=== PATIENT | female | born 1990 | race Caucasian/White ===

== ENCOUNTER 2019-06-25 03:49 | Inpatient (IN) ==
[2019-06-25] MEDS ORDERED: OXYTOCIN 30 UNITS/500 ML BAG IV PRN ×3 (07:04→19:57)
[2019-06-25] MEDS: LACTATED RINGER'S 1,000 ML IV PRN ×3 (07:19→16:21)
[2019-06-25 07:22] LABS: Hematocrit (blood only) 37.9 % (37-47); Hemoglobin 12.6 g/dL (12.0-16.0); Mean Corpuscular Hemoglobin 29.5 pg (25-34); Mean Corpuscular Volume 88.8 fL (80-100); Mean Platelet Volume 8.6 fL (7.4-10.4); Platelet Count 273 K/uL (130-400); RDW Coefficient of Variation 12.9 % (11.5-14.5); RDW Standard Deviation 41.2 fL (36.4-46.3); Red Blood Count 4.27 M/uL (4.2-5.4); White Blood Count 11.98 K/uL (4.8-10.8)
[2019-06-25] MEDS ORDERED: fentaNYL citrate 100 MCG/2 ML VIAL ONE (07:26)
[2019-06-25] MEDS ORDERED: ePHEDrine sulfate 50 MG/ML AMP ONE (07:26)
[2019-06-25] MEDS ORDERED: fentaNYL 2MCG/ML ROPIV 1.25MG/ML 100 ML BAG EPI ONE (07:27)
[2019-06-25] MEDS ORDERED: BUPIVACAINE 0.25% 30 ML VIAL ONE (07:27)
--- NOTE | 2019-06-25 07:37 | History & Physical Report ---
Date of Service June 25, 2019 Assessment & Plan (1) Normal labor: IUP in active labor patient requesting epidural analgesia anticipate vaginal . History of Present Illness Primary Care Provider: Herminia Rosenberg Patient is a 28 yo white female EDC 06/24/19 who presents at 40 weeks in active labor. (-)SPROM GBS (+) complicated by La's thyroiditis. Family history complicated by nephew with hypoplastic left heart syndrome. Allergies Allergy/AdvReac Type Severity Reaction Status Date / Time Penicillins Allergy Verified 06/18/19 10:52 Home Medications Home Medications Medication Instructions Recorded Confirmed Type breast pump #1 ea 06/12/19 06/25/19 Rx PNV cmb#95-ferrous fumarate-FA 1 tab PO DAILY 06/25/19 06/25/19 History [] famotidine 06/25/19 History levothyroxine 150 mcg PO DAILY 06/25/19 06/25/19 History Patient History Medical History (Updated 06/25/19 @ 07:36 by Lea Blankenship MD, FACOG) History of varicella vaccination Surgical History (Updated 01/26/19 @ 15:21 by Silvia Anne) S/P wisdom tooth extraction Family History (Updated 01/26/19 @ 15:24 by Silvia Anne) Grandmother (Paternal) Colorectal cancer Hypertension Grandfather (Paternal) Hypertension Sister FH: malignant neoplasm of thyroid Mother Thyroid disease Dyslipidemia Family/Other Hypoplastic left heart syndrome nephew Social History (Updated 01/26/19 @ 15:25 by Silvia Anne) Preferred Language: Colombian Communication Ability: Effective Beliefs That Will Affect Care: None marital status: Current Living Situation: Spouse Other Information That Helps Us Care for You: No Feels Safe at Home: Yes Safety Concerns: Feels Safe At This Time Smoking Status: Never smoker Hx Alcohol Use: No Hx Substance Use: No Review of Systems All systems reviewed & are unremarkable except as noted in HPI & below Physical Exam Constitutional: WD/WN, vitals as above Respiratory: normal respiratory effort, lungs clear to auscultation Cardiovascular: RRR, no murmur, no edema Gastrointestinal (Abdomen): normal bowel sounds, soft, nontender, no hepatosplenomegaly Psychiatric: A+Ox3, euthymic affect Genitourinary: OB Exam Abdomen: + regular contractions Manual OB Exam: + cervical dilation 5 cm, + cervical effacement 90% and + station -1 OB Exam Monitor Tracing: + external FHT monitor used, + external uterine monitor used and + category I Results & Data Vital Signs (Past 12 Hours) Vital Signs Temp Pulse Resp BP 06/25/19 07:01 53 L 115/74 06/25/19 04:10 97.5 F L 70 18 122/74 06/25/19 04:06 97.5 F L 70 18 122/74
[2019-06-25 07:41] LABS: Mean Corpuscular Hgb Conc 33.2 g/dL (32-36)
--- NOTE | 2019-06-25 08:37 | Anesthesiology Consultation ---
Date of Service June 25, 2019 Assessment & Plan (1) Encounter for pre-operative examination: Chart Review Chart Review: Patient NOT seen in Pre Admission Testing and Acceptable Risk for Labor Epidural Consults Requested none ASA ASA2 Proposed Anesthesia Anesthesia Type: Labor Epidural Risk / Benefits Reviewed With: PT / POA / Parent / Guardian, Accepts Plan and Informed Consent Obtained History Height/Weight Height: 5 ft 4 in Weight: 79.832 kg Allergies Allergy/AdvReac Type Severity Reaction Status Date / Time Penicillins Allergy Verified 06/18/19 10:52 Medications Home Medications Medication Instructions Recorded Confirmed Last Taken breast pump #1 ea 06/12/19 06/25/19 Unknown PNV cmb#95-ferrous fumarate-FA 1 tab PO DAILY 06/25/19 06/25/19 06/24/19 [] famotidine 06/25/19 06/24/19 levothyroxine 150 mcg PO DAILY 06/25/19 06/25/19 06/24/19 Active Medications Generic Name Dose Route Start Last Admin Trade Name Freq PRN Reason Stop Dose Admin Lactated Ringer's 1,000 mls @ 125 mls/hr 06/25/19 07:04 06/25/19 08:28 Lr IV 06/27/19 07:03 Infused .Q8H PRN Infusion L&D Protocol Protocol NPO Date Last Intake of Fluids: 06/25/19 Time Last Intake of Fluids: 06:00 Date Last Intake of Solids: 06/24/19 Time Last Intake of Solids: 21:00 Past Medical History Medical History History of varicella vaccination Exercise / Class Metabolic Activity II 4-5 Yardwork/Stairs/Walk up hill Past Family History Family History Grandmother (Paternal) Colorectal cancer Hypertension Grandfather (Paternal) Hypertension Sister FH: malignant neoplasm of thyroid Mother Thyroid disease Dyslipidemia Family/Other Hypoplastic left heart syndrome nephew Past Surgical History Surgical History S/P wisdom tooth extraction Past Anesthesia History No Hx of Anesthesia Complications and No Family Hx of Anesthesia Complications History of PONV No Hx of PONV and No Hx of Motion Sickness Social History Smoking Status: Never smoker Hx Alcohol Use: No Hx Substance Use: No Physical Exam Vital Signs Last Vital Signs Temp 36.5 C 06/25/19 07:05 Pulse 67 06/25/19 08:32 Resp 20 06/25/19 07:05 BP 113/55 L 06/25/19 08:32 Pulse Ox 98 06/25/19 08:29 ENMT Mouth: no dentition abnormality Thyromental Distance: > or= 3.5 Finger Breadths Mallampati Class: II Neck normal visual inspection Respiratory normal respiratory effort Auscultation: lungs clear to auscultation bilaterally Cardiovascular Rate/Rhythm: regular rate and regular rhythm Psychiatric Orientation: alert Testing Laboratory Results 06/25/19 07:12
[2019-06-25] MEDS ORDERED: NALBUPHINE HCL INJ 10 MG/ML AMP IV PRN (08:39)
[2019-06-25] MEDS ORDERED: ONDANSETRON INJ 2 MG/ML 2 ML VIAL IV PRN (08:39)
[2019-06-25] MEDS ORDERED: ePHEDrine sulfate 50 MG/ML AMP IV PRN (08:39)
[2019-06-25] MEDS ORDERED: NALOXONE HCL 1 MG in SODIUM CHLORIDE 0.9% 1000ML 1,000 ML IV PRN (08:39)
[2019-06-25] MEDS ORDERED: fentaNYL 2MCG/ML ROPIV 1.25MG/ML 100 ML BAG EPI PRN (08:39)
[2019-06-25] MEDS ORDERED: DiphenhydrAMINE HCL 50 MG/ML VIAL IV PRN (08:39)
[2019-06-25] MEDS ORDERED: NALOXONE HCL 0.4 MG/1 ML VIAL/CARP IV PRN (08:39)
[2019-06-25] MEDS ORDERED: CEFAZOLIN 1000MG 1,000 MG/7.5 ML SYR IV PRN (08:59)
[2019-06-25] MEDS ORDERED: CEFAZOLIN 2000MG 2,000 MG/15 ML SYR IV STA (08:59)
--- NOTE | 2019-06-25 09:41 | Labor Progress Brief Note ---
Date of Service June 25, 2019 Subjective Comfortable with epidural Assessment & Plan (1) Normal labor: Progressing well, epidural working. SROM now; hoping to get two doses abx for GBS and first Ancef just hung. Physical Exam Genitourinary: Manual OB Exam: + cervical dilation 6 cm, + cervical effacement 90%, + station -1 and + amniotic fluid (SROM occurred during exam, clear fluid noted) clear OB Exam Monitor Tracing: + category I Results & Data Vital Signs (Past 12 Hours) Vital Signs Temp Pulse Resp BP Pulse Ox 06/25/19 09:39 60 96/54 L 06/25/19 09:34 81 99 06/25/19 09:29 60 100 06/25/19 09:24 63 97 06/25/19 09:23 61 95/55 L 06/25/19 09:19 77 99 06/25/19 09:14 54 L 97 06/25/19 09:09 56 L 97 06/25/19 09:08 62 109/57 L 06/25/19 09:04 61 98 06/25/19 08:59 53 L 98 06/25/19 08:54 57 L 98 06/25/19 08:53 55 L 108/58 L 06/25/19 08:49 57 L 100 06/25/19 08:44 64 100 06/25/19 08:39 74 98 06/25/19 08:37 60 114/61 06/25/19 08:34 64 99 06/25/19 08:32 67 113/55 L 06/25/19 08:30 74 104/60 06/25/19 08:29 74 98 06/25/19 08:28 67 111/61 06/25/19 08:26 84 114/64 06/25/19 08:24 68 111/58 L 100 06/25/19 08:22 61 118/71 06/25/19 08:19 64 100 06/25/19 08:14 72 100 06/25/19 08:09 90 100 06/25/19 07:05 97.7 F 20 06/25/19 07:01 53 L 115/74 06/25/19 04:10 97.5 F L 70 18 122/74 06/25/19 04:06 97.5 F L 70 18 122/74
--- NOTE | 2019-06-25 14:36 | Labor Progress Brief Note ---
Date of Service June 25, 2019 Subjective Comfortable with epidural Assessment & Plan (1) Normal labor: No significant change, ctx Q3-4, will start pitocin. Second abx dose due around 5pm. Physical Exam Genitourinary: Manual OB Exam: + cervical dilation 6 cm, + cervical effacement 90%, + station -1 and + amniotic fluid (SROM occurred during exam, clear fluid noted) clear OB Exam Monitor Tracing: + category I Results & Data Vital Signs (Past 12 Hours) Vital Signs Temp Pulse Resp BP Pulse Ox 06/25/19 14:29 69 100 06/25/19 14:24 90 100 06/25/19 14:23 71 116/67 06/25/19 14:19 64 100 06/25/19 14:14 86 100 06/25/19 14:09 79 99 06/25/19 14:08 61 115/61 06/25/19 14:04 60 98 06/25/19 13:59 64 98 06/25/19 13:54 98.2 F 54 L 20 119/61 97 06/25/19 13:49 129 H 99 06/25/19 13:44 115 H 99 06/25/19 13:39 74 99 06/25/19 13:38 69 117/68 06/25/19 13:34 83 99 06/25/19 13:29 66 98 06/25/19 13:24 67 98 06/25/19 13:23 64 117/64 06/25/19 13:19 64 97 06/25/19 13:14 67 97 06/25/19 13:09 65 97 06/25/19 13:08 67 108/60 06/25/19 13:04 68 98 06/25/19 12:59 73 99 06/25/19 12:54 68 99 06/25/19 12:53 68 20 109/60 06/25/19 12:49 78 99 06/25/19 12:44 61 97 06/25/19 12:39 64 97 06/25/19 12:38 73 115/62 06/25/19 12:34 58 L 98 06/25/19 12:29 62 97 06/25/19 12:24 58 L 97 06/25/19 12:23 56 L 108/57 L 06/25/19 12:19 62 97 06/25/19 12:14 60 98 06/25/19 12:09 62 99 06/25/19 12:08 98.2 F 65 18 112/61 06/25/19 12:04 70 99 06/25/19 11:59 66 99 06/25/19 11:54 63 99 06/25/19 11:53 68 112/59 L 06/25/19 11:49 64 100 06/25/19 11:44 70 99 06/25/19 11:39 76 100 06/25/19 11:38 61 111/57 L 06/25/19 11:34 62 99 06/25/19 11:29 60 100 06/25/19 11:24 59 L 109/57 L 100 06/25/19 11:19 69 100 06/25/19 11:14 72 100 06/25/19 11:09 69 100 06/25/19 11:08 62 116/64 06/25/19 11:04 66 100 06/25/19 11:00 20 06/25/19 10:59 65 100 06/25/19 10:58 57 L 120/65 06/25/19 10:54 65 100 06/25/19 10:49 100 H 98 06/25/19 10:44 71 100 06/25/19 10:39 75 100 06/25/19 10:38 83 98/57 L 06/25/19 10:34 81 100 06/25/19 10:29 65 109/57 L 100 06/25/19 10:25 61 73/34 L 06/25/19 10:24 59 L 100 06/25/19 10:19 125 H 99 06/25/19 10:14 68 100 06/25/19 10:09 53 L 98 06/25/19 10:08 55 L 98/53 L 06/25/19 10:04 53 L 97 06/25/19 10:01 16 06/25/19 10:00 98.1 F 16 06/25/19 09:59 53 L 97 06/25/19 09:54 56 L 97/55 L 96 06/25/19 09:49 62 97 06/25/19 09:44 61 97 06/25/19 09:39 63 96/54 L 99 06/25/19 09:34 81 99 06/25/19 09:29 60 100 06/25/19 09:24 63 97 06/25/19 09:23 61 95/55 L 06/25/19 09:19 77 99 06/25/19 09:14 54 L 97 06/25/19 09:09 56 L 97 06/25/19 09:08 62 109/57 L 06/25/19 09:04 61 98 06/25/19 08:59 53 L 98 06/25/19 08:54 57 L 98 06/25/19 08:53 55 L 108/58 L 06/25/19 08:49 57 L 100 06/25/19 08:44 64 100 06/25/19 08:39 74 98 06/25/19 08:37 60 114/61 06/25/19 08:34 64 99 06/25/19 08:32 67 113/55 L 06/25/19 08:30 74 104/60 06/25/19 08:29 74 98 06/25/19 08:28 67 111/61 06/25/19 08:26 84 114/64 06/25/19 08:24 68 111/58 L 100 06/25/19 08:22 61 118/71 06/25/19 08:19 64 100 06/25/19 08:14 72 100 06/25/19 08:09 90 100 06/25/19 07:05 97.7 F 20 06/25/19 07:01 53 L 115/74 06/25/19 04:10 97.5 F L 70 18 122/74 06/25/19 04:06 97.5 F L 70 18 122/74
--- NOTE | 2019-06-25 19:03 | Delivery Summary ---
Vaginal Delivery Summary Date of Service June 25, 2019 Vaginal Delivery Summary DIAGNOSES: 1. Louise intrauterine at 40w1d gestation. 2. Spontaneous onset of labor. 3. Group B Streptococcus Pos, treated x2 doses Ancef. PROCEDURE: Spontaneous vaginal delivery and repair of 1st degree laceration. SURGEON: Mae Leahy MD. DIRECTOR GROUP SALES: None. ESTIMATED BLOOD LOSS: 300 mL. COMPLICATIONS: None. PLACENTA: Spontaneous and intact with a 3-vessel cord. DISPOSITION: Stable to labor and delivery. DESCRIPTION: The patient pushed well and brought the head to in OA position. The infant's head was allowed to deliver with contraction force and no further active pushing, with the perineum protected during this time. The shoulders delivered easily with a maternal pushing effort. There was no nuchal cord. The shoulders and body delivered without any difficulty, and the infant was placed on the maternal abdomen. It was vigorous and moving all extremities, and making respiratory efforts. The cord was doubly clamped by the MD and then cut by the FOB. The placenta delivered spontaneously and was noted to be intact and with a 3VC. The cervix, vagina and perineum were examined and were found to have hemostatic abrasions of the labia and a first degree perineal lac, which was repaired using vicryl. The fundus was firm and lochia minimal immediately after delivery.
--- NOTE | 2019-06-25 19:55 | Anesthesiology Progress Note ---
Date of Service June 25, 2019 Anesthesia Post Procedure Vital Signs Vital Signs: Temp Pulse Resp BP Pulse Ox 06/25/19 19:53 78 116/76 06/25/19 19:45 16 06/25/19 19:38 82 116/70 06/25/19 19:30 16 06/25/19 19:23 66 119/56 L 06/25/19 19:15 16 06/25/19 19:08 86 116/63 06/25/19 19:00 36.7 C 16 06/25/19 18:59 98 H 95 06/25/19 18:54 85 98 06/25/19 18:53 96 H 130/61 06/25/19 18:49 91 H 97 06/25/19 18:44 95 H 99 06/25/19 18:40 121 H 117/68 06/25/19 18:39 120 H 100 06/25/19 18:34 99 H 100 06/25/19 18:29 62 99 06/25/19 18:24 66 98 06/25/19 18:23 88 116/61 06/25/19 18:21 36.8 C 06/25/19 18:19 84 100 06/25/19 18:14 89 99 06/25/19 18:10 81 91 06/25/19 18:09 99 H 100 06/25/19 18:08 80 20 119/63 06/25/19 18:04 76 100 06/25/19 17:59 85 99 06/25/19 17:54 70 119/64 97 06/25/19 17:49 96 H 97 06/25/19 17:44 74 99 06/25/19 17:40 78 130/69 06/25/19 17:39 74 98 06/25/19 17:34 69 98 06/25/19 17:29 80 99 06/25/19 17:24 65 99 06/25/19 17:23 64 119/68 06/25/19 17:19 64 100 06/25/19 17:14 67 99 06/25/19 17:09 67 99 06/25/19 17:08 70 117/71 06/25/19 17:04 70 100 06/25/19 16:59 92 H 98 06/25/19 16:54 76 100 06/25/19 16:53 77 117/74 06/25/19 16:49 80 100 06/25/19 16:44 65 99 06/25/19 16:39 75 114/65 100 06/25/19 16:34 63 100 06/25/19 16:29 81 100 06/25/19 16:24 67 100 06/25/19 16:23 65 112/62 06/25/19 16:19 73 99 06/25/19 16:14 86 100 06/25/19 16:09 70 100 06/25/19 16:08 68 115/64 06/25/19 16:04 64 99 06/25/19 15:59 61 100 06/25/19 15:54 36.8 C 68 20 113/60 100 06/25/19 15:49 97 H 100 06/25/19 15:44 71 100 06/25/19 15:39 63 100 06/25/19 15:38 68 123/67 06/25/19 15:34 74 100 06/25/19 15:29 79 100 06/25/19 15:24 77 118/69 100 06/25/19 15:19 91 H 100 06/25/19 15:14 76 100 06/25/19 15:10 71 115/61 06/25/19 15:09 70 100 06/25/19 15:04 73 100 06/25/19 14:59 84 100 06/25/19 14:54 64 100 06/25/19 14:53 80 20 117/64 06/25/19 14:49 75 100 06/25/19 14:44 71 100 06/25/19 14:39 63 100 06/25/19 14:38 68 115/63 06/25/19 14:34 63 100 06/25/19 14:29 69 100 06/25/19 14:24 90 100 06/25/19 14:23 71 116/67 06/25/19 14:19 64 100 06/25/19 14:14 86 100 06/25/19 14:09 79 99 06/25/19 14:08 61 115/61 06/25/19 14:04 60 98 06/25/19 13:59 64 98 06/25/19 13:54 36.8 C 54 L 20 119/61 97 06/25/19 13:49 129 H 99 06/25/19 13:44 115 H 99 06/25/19 13:39 74 99 06/25/19 13:38 69 117/68 06/25/19 13:34 83 99 06/25/19 13:29 66 98 06/25/19 13:24 67 98 06/25/19 13:23 64 117/64 06/25/19 13:19 64 97 06/25/19 13:14 67 97 06/25/19 13:09 65 97 06/25/19 13:08 67 108/60 06/25/19 13:04 68 98 06/25/19 12:59 73 99 06/25/19 12:54 68 99 06/25/19 12:53 68 20 109/60 06/25/19 12:49 78 99 06/25/19 12:44 61 97 06/25/19 12:39 64 97 06/25/19 12:38 73 115/62 06/25/19 12:34 58 L 98 06/25/19 12:29 62 97 06/25/19 12:24 58 L 97 06/25/19 12:23 56 L 108/57 L 06/25/19 12:19 62 97 06/25/19 12:14 60 98 06/25/19 12:09 62 99 06/25/19 12:08 36.8 C 65 18 112/61 06/25/19 12:04 70 99 06/25/19 11:59 66 99 06/25/19 11:54 63 99 06/25/19 11:53 68 112/59 L 06/25/19 11:49 64 100 06/25/19 11:44 70 99 06/25/19 11:39 76 100 06/25/19 11:38 61 111/57 L 06/25/19 11:34 62 99 06/25/19 11:29 60 100 06/25/19 11:24 59 L 109/57 L 100 06/25/19 11:19 69 100 06/25/19 11:14 72 100 06/25/19 11:09 69 100 06/25/19 11:08 62 116/64 06/25/19 11:04 66 100 06/25/19 11:00 20 06/25/19 10:59 65 100 06/25/19 10:58 57 L 120/65 06/25/19 10:54 65 100 06/25/19 10:49 100 H 98 06/25/19 10:44 71 100 06/25/19 10:39 75 100 06/25/19 10:38 83 98/57 L 06/25/19 10:34 81 100 06/25/19 10:29 65 109/57 L 100 06/25/19 10:25 61 73/34 L 06/25/19 10:24 59 L 100 06/25/19 10:19 125 H 99 06/25/19 10:14 68 100 06/25/19 10:09 53 L 98 06/25/19 10:08 55 L 98/53 L 06/25/19 10:04 53 L 97 06/25/19 10:01 16 06/25/19 10:00 36.7 C 16 06/25/19 09:59 53 L 97 06/25/19 09:54 56 L 97/55 L 96 06/25/19 09:49 62 97 06/25/19 09:44 61 97 06/25/19 09:39 63 96/54 L 99 06/25/19 09:34 81 99 06/25/19 09:29 60 100 06/25/19 09:24 63 97 06/25/19 09:23 61 95/55 L 06/25/19 09:19 77 99 06/25/19 09:14 54 L 97 06/25/19 09:09 56 L 97 06/25/19 09:08 62 109/57 L 06/25/19 09:04 61 98 06/25/19 08:59 53 L 98 06/25/19 08:54 57 L 98 06/25/19 08:53 55 L 108/58 L 06/25/19 08:49 57 L 100 06/25/19 08:44 64 100 06/25/19 08:39 74 98 06/25/19 08:37 60 114/61 06/25/19 08:34 64 99 06/25/19 08:32 67 113/55 L 06/25/19 08:30 74 104/60 06/25/19 08:29 74 98 06/25/19 08:28 67 111/61 06/25/19 08:26 84 114/64 06/25/19 08:24 68 111/58 L 100 06/25/19 08:22 61 118/71 01/02/20 08:19 64 100 06/25/19 08:14 72 100 06/25/19 08:09 90 100 06/25/19 07:05 36.5 C 20 06/25/19 07:01 53 L 115/74 06/25/19 04:10 36.4 C L 70 18 122/74 06/25/19 04:06 36.4 C L 70 18 122/74 Pain Intensity Bilateral Abdomen: Pain Intensity: 0 Transfer of Care Handoff Completed per policy Notes Mental Status: alert / awake / arousable Nausea / Vomiting: adequately controlled Pain: adequately controlled Airway Patency, RR, SpO2: stable & adequate BP & HR: stable & adequate Hydration State: stable & adequate Neuraxial Anesthesia: was administered and sensory block is resolving Anesthetic Complications: no major complications apparent
[2019-06-25] MEDS ORDERED: ACETAMINOPHEN 325 MG TAB PO PRN (19:57)
[2019-06-25] MEDS ORDERED: SUPERCREAM 0.870% 15 GM JAR EXT PRN (19:57)
[2019-06-25] MEDS ORDERED: bisacodyL 10 MG SUPP PR PRN (19:57)
[2019-06-25] MEDS ORDERED: DIPHTHERIA/TETANUS/PERTUSSIS 0.5 ML SYR/VIAL IM ONE (19:57)
[2019-06-25] MEDS ORDERED: HYDROCORTISONE ACETATE 25 MG SUPP PR PRN (19:57)
[2019-06-25] MEDS ORDERED: OXYCODONE/ACETAMINOPHEN 5mg/325mg TAB PO PRN (19:57)
[2019-06-25] MEDS ORDERED: LACTATED RINGER'S 1,000 ML IV SCH (19:57)
[2019-06-25] MEDS ORDERED: BENZOCAINE 20% AER SPR 82.5 GM CAN EXT PRN (19:57)
[2019-06-25] MEDS: IBUPROFEN 600 MG TAB PO PRN (20:12)
[2019-06-26] MEDS: IBUPROFEN 600 MG TAB PO PRN ×3 (05:46→15:58)
[2019-06-26] MEDS: LEVOTHYROXINE SODIUM 150 MCG TABLET PO SCH (05:46)
[2019-06-26 06:33] LABS: Hematocrit (blood only) 30.5 % (37-47); Hemoglobin 10.3 g/dL (12.0-16.0); Mean Corpuscular Hemoglobin 29.5 pg (25-34); Mean Corpuscular Hgb Conc 33.8 g/dL (32-36); Mean Corpuscular Volume 87.4 fL (80-100); Mean Platelet Volume 8.8 fL (7.4-10.4); Platelet Count 224 K/uL (130-400); RDW Coefficient of Variation 13.2 % (11.5-14.5); RDW Standard Deviation 42.4 fL (36.4-46.3); Red Blood Count 3.49 M/uL (4.2-5.4); White Blood Count 15.67 K/uL (4.8-10.8)
--- NOTE | 2019-06-26 07:57 | Obstetrical Progress Note ---
Date of Service June 26, 2019 Assessment & Plan (1) Supervision of normal intrauterine in primigravida: PPD#1 recovering well. Adequate treatment for GBS+ but patient comfortable staying until tomorrow at this time. Subjective Ambulation: ambulating normally Voiding: no voiding problems Passing Gas:: Yes Diet Tolerance:: regular diet Lochia:: Small Feeding Type:: breast feeding Physical Exam Constitutional WD/WN, vitals as above Eyes PERRL, conjunctivae normal, anicteric sclerae Neck normal visual inspection Respiratory normal respiratory effort and able to speak in complete sentences; no respiratory distress and no labored breathing Cardiovascular Rate/Rhythm: regular rate and regular rhythm Extremities: no edema Chest (Breasts) Chest: normal inspection of chest Gastrointestinal (Abdomen) Inspection/Auscultation: abdomen normal to inspection Soft, postgravid Psychiatric A+Ox3, euthymic affect Genitourinary OB Exam Abdomen: + fundal height Fundus: + firm and + relation to umbilicus (fundus just below umbilicus); not tender Results & Data Vital Signs (Past 12 Hours) Vital Signs Temp Pulse Pulse Resp BP BP Pulse Ox 06/26/19 07:05 97.9 F 58 L 14 92/59 L 97 06/26/19 05:25 97.9 F 60 16 104/67 98 06/25/19 23:20 98.4 F 54 L 16 116/72 98 06/25/19 22:00 98.2 F 89 16 107/69 98 06/25/19 21:06 59 L 118/57 L 06/25/19 21:00 98.1 F 16 06/25/19 20:39 70 108/56 L 06/25/19 20:08 73 108/59 L 06/25/19 20:00 97.7 F 16
[2019-06-26] MEDS: DOCUSATE SODIUM 100 MG CAP PO SCH ×3 (08:15→20:00)
[2019-06-26] MEDS: PRENATAL VITAMIN 1 TAB PO SCH (08:15)
[2019-06-26] MEDS ORDERED: bisacodyL 5 MG TABEC PO SCH (20:00)
[2019-06-27] MEDS: IBUPROFEN 600 MG TAB PO PRN ×2 (01:21→08:03)
[2019-06-27] MEDS: LEVOTHYROXINE SODIUM 150 MCG TABLET PO SCH (06:38)
[2019-06-27 06:40] LABS: Hematocrit (blood only) 29.9 % (37-47)
--- NOTE | 2019-06-27 08:02 | Obstetrical Progress Note ---
Date of Service June 27, 2019 Assessment & Plan (1) Supervision of normal intrauterine in primigravida: 28yo PPD 2 from . Doing well. Stable for discharge Subjective Ambulation: ambulating normally Voiding: no voiding problems Passing Gas:: Yes Diet Tolerance:: regular diet Lochia:: Moderate Feeding Type:: breast feeding Physical Exam Constitutional WD/WN, vitals as above Respiratory normal respiratory effort; no respiratory distress and no labored breathing Gastrointestinal (Abdomen) Inspection/Auscultation: abdomen normal to inspection; abdomen not distended Percussion/Palpation: abdomen soft; abdomen nontender, no guarding and abdomen not rigid Genitourinary OB Exam Abdomen: + fundal height Fundus: + firm and + relation to umbilicus (Below); not tender and not boggy Results & Data Vital Signs (Past 12 Hours) Vital Signs Temp Pulse Resp BP Pulse Ox 06/27/19 07:20 36.5 C 54 L 14 104/67 98 06/27/19 00:55 36.4 C L 62 18 110/69
[2019-06-27] MEDS: PRENATAL VITAMIN 1 TAB PO SCH (08:04)
[2019-06-27] MEDS: DOCUSATE SODIUM 100 MG CAP PO SCH (08:04)
== END 2019-06-27 12:20 | disposition home or self-care (01) | DRG 807 ==
LOC: OPB 03:49 → 4S1 03:51 → 4S2 22:14